=== PATIENT | female | born 1990 | race Caucasian/White ===

== ENCOUNTER 2016-06-15 06:38 | Emergency (ER) | payer OTHER ==
[~2016-06-15] VITALS: Ht 152.4 cm; Wt 65.0 kg
[~2016-06-15 06:38] MED LIST: HYDR-3498 PO; HYDR-762 PO; METH-70 PO; NITR-58 PO; TAMS-14 PO
[2016-06-15 06:41] VITALS: Ht 152.4 cm; Wt 65.0 kg
[2016-06-15] MEDS ORDERED: ONDANSETRON (ODT) 4 MG TAB ODT STA (07:38)
[2016-06-15 07:48] LABS: URINE BLOOD (Dip) POC 1+ (NEGATIVE)
[2016-06-15] MEDS ORDERED: NITR-58 PO (08:24)
[2016-06-15] MEDS ORDERED: ONDA4TAB8 PO (08:24)
[2016-06-15] MEDS ORDERED: PHEN-537 PO (08:24)
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
[2016-06-15] MEDS ORDERED: IBUP-1542 PO (09:04)
[2016-06-15 09:09] VITALS: BP 129/65; PULSE 79; RESP 18; TEMP 98.1
== END 2016-06-15 09:09 | disposition home or self-care (01) ==
LOC: FTE 06:38
DX: N39.0 Urinary tract infection, site not specified (principal)
CPT/HCPCS: 81003; 87086; 87591; Z7502; Z7610

== ENCOUNTER 2016-06-19 09:03 | Emergency (ER) | payer OTHER ==
[~2016-06-19] VITALS: Ht 124.5 cm; Wt 50.0 kg
[~2016-06-19 09:03] MED LIST changes: +IBUP-1542 PO; +ONDA4TAB8 PO; +PHEN-537 PO
[2016-06-19 09:05] VITALS: Ht 124.5 cm; Wt 50.0 kg
--- NOTE | 2016-06-19 11:25 | RADRPT ---
PROCEDURE: CT abdomen and pelvis without contrast and with 3-D reconstructions CLINICAL INDICATION: Burning feeling in lower abdomen TECHNIQUE: CT scan of the abdomen and pelvis without contrast was performed on a multislice CT [facility]. 3-D sagittal and coronal reformatted images were obtained from the axial source images. DLP 231.83 mGycm CTDIvol 4.56 mGy COMPARISON: CT abdomen/pelvis from 11/07/2015 FINDINGS: The visualized lung bases are unremarkable. The liver is homogenous in attenuation. There are no focal liver lesions. There is no intrahepatic or extrahepatic biliary ductal dilatation. The gallbladder is within normal limits. The spleen, pancreas, and adrenal glands are within normal limits. The kidneys are symmetric and without focal lesions. There are no renal calculi. There is no obstruc tive uropathy. There are no dilated or thickened loops of bowel. The aorta is within normal limits. There are no enlarged mesenteric, periaortic, or retroperitoneal lymph nodes. The bladder is within normal limits. There is no free air. There is no free fluid. There are no enlarged intrapelvic or inguinal lymph nodes. S-shaped scoliosis of the thoracolumbar spine status post fusion with rods and transpedicular screws is again noted. Several of the screws are noted to project past the confines of the vertebral body. For example, the right transpedicular screws of T9 and T10 are noted to extend approximately 3 mm each passed the anterior border of the respective vertebral bodies although this is not significantl y changed compared to the prior CT study from October 2015. The right transpedicular screw at L1 extend s lateral to the right pedicle by approximately 1 mm and extends anteriorly approximately 2 mm past the anterior border of the L1 vertebral body. Hardware is again noted in the right S1 neural forame n. Bony remodelling of the sacrum is again noted as well as chronic right hip dislocation and a shallow left acetabulum. IMPRESSION: No evidence of acute intra-abdominal pathology although the patient is again noted to be status post thoracolumbar fusion with rods and transpedicular screws. The right transpedicular screws of T9 an d T10 are noted to extend past the anterior border of their respective vertebral bodies by 3 mm and the right transpedicular screw at L1 extends lateral to the right pedicle by approximately 1 mm as w ell as anteriorly approximately 2 mm. Furthermore, hardware is again noted at the right S1 neural f oramen. These findings, however, are not significantly changed compared with the prior CT study fro October 2015. Clinical correlation is recommended. Bony remodelling of the sacrum is again noted as well as chronic right hip dislocation and a shallow left acetabulum. RPTAT: EE Physician Theo Date Time Electronically viewed and signed by Joey He Physician on 06/19/2016 11:25 RA/
[2016-06-19] MEDS ORDERED: CEPH-443 PO (11:53)
[2016-06-19] MEDS ORDERED: LIDOCAINE 1% (MDV) 20 ML INJ SC ONE (12:00)
[2016-06-19] MEDS ORDERED: CEFTRIAXONE 1 GM INJ IM ONE (12:00)
[2016-06-19 12:09] VITALS: TEMP 98.9
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
== END 2016-06-19 12:11 | disposition home or self-care (01) ==
LOC: FTE 09:03
DX: N39.0 Urinary tract infection, site not specified (principal); R10.2 Pelvic and perineal pain
CPT/HCPCS: 74176; 96372; J0696; Z7502; Z7610

== ENCOUNTER 2017-11-21 14:17 | Emergency (ER) | END 2017-11-21 15:56 | disposition home or self-care (01) ==

== ENCOUNTER 2017-12-01 08:29 | Emergency (ER) | END 2017-12-01 09:41 | disposition home or self-care (01) ==